=== PATIENT | female | born 1995 | race Caucasian/White ===

== ENCOUNTER 2023-04-16 21:21 | Emergency (ER) | payer MEDICAID ==
[~2023-04-16] VITALS: Ht 162.6 cm; Wt 104.3 kg
[2023-04-16 22:06] VITALS: BP 122/73; PULSE 104; RESP 16; TEMP 97.8; O2SAT 98
[2023-04-16] MEDS ORDERED: NAPR-54 PO (22:51)
== END 2023-04-16 23:00 | disposition home or self-care (01) ==
LOC: MED 21:21
DX: S93.491A Sprain of other ligament of right ankle, initial encounter (principal); Z88.0 Allergy status to penicillin; Z88.8 Allergy status to other drugs, medicaments and biological substances; Z79.899 Other long term (current) drug therapy; X58.XXXA Exposure to other specified factors, initial encounter; Y93.89 Activity, other specified; Y92.89 Other specified places as the place of occurrence of the external cause; Y99.8 Other external cause status
CPT/HCPCS: 73610; 99283